=== PATIENT | female | born 1995 | race Caucasian/White ===

== ENCOUNTER 2019-04-03 15:15 | Emergency (ER) | payer MEDICAID, OTHER ==
[~2019-04-03] VITALS: Ht 170.2 cm; Wt 59.0 kg
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
--- NOTE | 2019-04-03 15:30 | NUR ---
TECH AT BEDSIDE FOR CLEANING AND FLUSHING OF L THUMB LAC
[2019-04-03] MEDS ORDERED: LIDOCAINE 1%-EPI 1:100,000 20 ML VIAL ONE (15:43)
[2019-04-03] MEDS ORDERED: TDAP [DIPH/PERTUSSIS/TET] 0.5 ML VIAL IM ONE ×2 (15:52→16:00)
--- NOTE | 2019-04-03 15:58 | NUR ---
[place] BUSTAMANTE AT BEDSIDE FOR SUTURING
[2019-04-03] MEDS ORDERED: LIDOCAINE HCL/PF 1% 30 ML VIAL TP ONE (16:00)
--- NOTE | 2019-04-03 16:42 | NUR ---
TECH AT BEDSIDE FOR WOUND CARE.
[2019-04-03 16:48] VITALS: BP 116/64
--- NOTE | 2019-04-03 16:48 | NUR ---
Patient discharged to home in stable condition. Written and verbal after care instructions given. Patient verbalizes understanding of instruction.
== END 2019-04-03 16:49 | disposition home or self-care (01) ==
LOC: ER 15:21
DX: S61.012A Laceration without foreign body of left thumb without damage to nail, initial encounter (principal); Z88.2 Allergy status to sulfonamides; W26.8XXA Contact with other sharp object(s), not elsewhere classified, initial encounter; Y93.89 Activity, other specified; Y92.89 Other specified places as the place of occurrence of the external cause; Y99.8 Other external cause status
CPT/HCPCS: 12001; 90471; 90715; 99283; J3490 ×2

== ENCOUNTER 2019-10-25 23:48 | Emergency (ER) | payer OTHER ==
[~2019-10-25] VITALS: Ht 170.2 cm; Wt 59.0 kg
--- NOTE | 2019-10-26 00:07 | NUR ---
PT CAME TO ER BED 11 C/O FEELING SICK. PT STATES THAT SHE WENT TO URGENT CARE ON THE AND THE FOR FEVER. PT STATES SHE IS CURRENTLY ON ANTIBIOTICS AND STATES IT HASN'T HELPED. PT ALSO TOOK TYLENOL ABOUT 1x HOUR WAREHOUSE ADMINISTRATOR. AAOX4. NO SOB. BREATHING EVENLY AND UNLABORED ON ROOM AIR. CONNECTED TO MONITOR.
--- NOTE | 2019-10-26 00:20 | NUR ---
URINE COLECTED AND SENT TO LAB
[2019-10-26] MEDS ORDERED: KETOROLAC TROMETHAMINE 15 MG/ML VIAL ONE (00:23)
[2019-10-26] MEDS ORDERED: IV NS 0.9% 1,000 ML BAG IV ONE (00:30)
[2019-10-26] MEDS ORDERED: KETOROLAC TROMETHAMINE INJ 30 MG/ML VIAL IV ONE (00:30)
--- NOTE | 2019-10-26 00:36 | NUR ---
BLOOD, STREP CULTURE, AND RAPID FLU SAMPLE TAKEN TO LAB WITH DRUM SAW OPERATOR
[2019-10-26 00:38] LABS: BASOPHILS # (AUTO) 0.1 /CMM (0.0-0.2); BASOPHILS % (AUTO) 1.3 % (0.0-2.0); EOSINOPHILS % (AUTO) 0.5 % (0.0-6.0); HEMATOCRIT 38 % (33-45); LYMPHOCYTES # (AUTO) 1.1 /CMM (0.8-4.8); LYMPHOCYTES % (AUTO) 25.7 % (20.0-44.0); MEAN CORPUSCULAR HGB CONC 35 g/dl (31.0-36.0); MEAN CORPUSCULAR VOLUME 87 fL (82-100); MONOCYTES # (AUTO) 0.4 /CMM (0.1-1.30); MONOCYTES % (AUTO) 10.3 % (2.0-12.0); NEUTROPHILS # (AUTO) 2.7 /CMM (1.8-8.9); NEUTROPHILS % (AUTO) 62.2 % (43.0-81.0); PLATELET COUNT (AUTO) 163 /CMM (150-450); WHITE BLOOD COUNT (AUTO) 4.3 K/uL (4.3-11.0)
[2019-10-26 00:39] LABS: APPEARANCE,URINE Clear (CLEAR); BILIRUBIN,URINE Negative (NEGATIVE); BLOOD, URINE Negative Ery/uL (NEGATIVE); COLOR,URINE Yellow (YELLOW); KETONES,URINE Trace (NEGATIVE); LEUKOCYTE ESTERASE ,URINE Small (NEGATIVE); NITRITE, URINE Negative (NEGATIVE); PROTEIN,URINE Negative (NEGATIVE); UGLUCOSE Negative (NEGATIVE); UROBILINOGEN,URINE 0.2 EU/dL (0.2)
[2019-10-26 00:54] LABS: CREATININE 1.1 mg/dL (0.6-1.3); POTASSIUM 3.3 mmol/L (3.5-5.1)
[2019-10-26 01:14] LABS: BACTERIA,URINE Few /HPF (None Seen); RBC,URINE 0-2 /HPF (0-2); SQUAMOUS EPITHELIAL CELL,UR Moderate /HPF (None Seen)
[2019-10-26 01:44] VITALS: BP 123/77
--- NOTE | 2019-10-26 01:44 | NUR ---
IV removed. Catheter intact and site benign. Pressure and 4x4 applied to site. No bleeding noted. Patient discharged to home in stable condition. Written and verbal after care instructions given. Patient verbalizes understanding of instruction.
== END 2019-10-26 01:45 | disposition home or self-care (01) ==
LOC: ER 23:50
DX: J32.9 Chronic sinusitis, unspecified (principal); Z88.2 Allergy status to sulfonamides
CPT/HCPCS: 36415; 80048; 81001; 84703; 85025; 87070; 87086; 87804 ×2; 87880; 96374; 99283; J1885; J7030; 81000-TC; 86403-TC

== ENCOUNTER 2020-11-27 08:10 | Emergency (ER) | payer OTHER ==
[~2020-11-27] VITALS: Ht 170.2 cm; Wt 59.0 kg
[2020-11-27 08:18] VITALS: BP 104/60
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
[2020-11-27] MEDS ORDERED: KETOROLAC TROMETHAMINE 15 MG/ML VIAL ONE (08:49)
--- NOTE | 2020-11-27 08:59 | NUR ---
IV access initiated on the RAC g18, blood drawned and sent to lab
[2020-11-27] MEDS ORDERED: KETOROLAC TROMETHAMINE INJ 30 MG/ML VIAL IV ONE (09:00)
[2020-11-27 09:18] LABS: BASOPHILS % (AUTO) 0.4 % (0.0-2.0); EOSINOPHILS % (AUTO) 1.2 % (0.0-6.0); HEMATOCRIT 40 % (33-45); HEMOGLOBIN 13.2 g/dL (11.5-14.8); LYMPHOCYTES % (AUTO) 28.5 % (20.0-44.0); MEAN CORPUSCULAR HGB CONC 33 g/dl (31.0-36.0); MEAN CORPUSCULAR VOLUME 90 fL (82-100); MONOCYTES # (AUTO) 0.6 /CMM (0.1-1.30); MONOCYTES % (AUTO) 8.4 % (2.0-12.0); NEUTROPHILS # (AUTO) 4.3 /CMM (1.8-8.9); NEUTROPHILS % (AUTO) 61.5 % (43.0-81.0); PLATELET COUNT (AUTO) 217 /CMM (150-450); RED BLOOD CELL COUNT(AUTO) 4.46 MIL/uL (4.0-5.2)
[2020-11-27 09:28] LABS: CALCIUM, SERUM 9.6 mg/dL (8.5-10.1); CREATININE 0.9 mg/dL (0.6-1.3)
[2020-11-27] MEDS ORDERED: IV NS 0.9% 250 ML IV ONE (09:38)
[2020-11-27] MEDS ORDERED: IOHEXOL-300 100 ML VIAL IV ONE (09:38)
[2020-11-27] MEDS ORDERED: CT SWABBABLE VALVE TRANS SET 1 EA INFUS.SET MC ONE (09:38)
--- NOTE | 2020-11-27 09:50 | NUR ---
wheeled patient to ct
--- NOTE | 2020-11-27 10:03 | NUR ---
patient came back from ct
[2020-11-27] MEDS ORDERED: IV NS 0.9% 1,000 ML IV ONE (11:00)
[2020-11-27] MEDS ORDERED: IBUP800T54 PO (11:10)
[2020-11-27] MEDS ORDERED: PENI250T2 PO (11:10)
[2020-11-27] MEDS ORDERED: CYCL5TAB PO (11:11)
--- NOTE | 2020-11-27 11:19 | NUR ---
Patient discharged to home in stable condition. Written and verbal after care instructions given. Patient verbalizes understanding of instruction.IV removed. Catheter intact and site benign. Pressure and 4x4 applied to site. No bleeding noted.
== END 2020-11-27 11:19 | disposition home or self-care (01) ==
LOC: ER 08:11
DX: R07.0 Pain in throat (principal); K08.89 Other specified disorders of teeth and supporting structures; Z88.2 Allergy status to sulfonamides; Z79.899 Other long term (current) drug therapy
CPT/HCPCS: 36415; 70487; 80048; 84702; 85025; 96361; 96374; 99285; J1885; J7050; Q9967

== ENCOUNTER 2022-09-19 23:43 | Emergency (ER) | payer OTHER ==
[~2022-09-19] VITALS: Ht 170.2 cm; Wt 54.4 kg
[~2022-09-19 23:43] MED LIST: CYCL5TAB PO; IBUP800T54 PO; PENI250T2 PO
--- NOTE | 2022-09-20 01:30 | NUR ---
BIBSELF C/O LAC TO LEFT LEG FROM [facility], TDAP UP TO DATE. PATIENT IS AAOX4. ABLE TO MAKE NEEDS KNOWN. AMBULATORY. WITH APPROX 6.5CM LACERATED WOUND. PLACED COMFORTABLY IN BED. VITALS CHECKED.
--- NOTE | 2022-09-20 01:56 | NUR ---
SEEN BY DR CLARK AT BEDSIDE. PATIENT FOR SUTURING OF LACERATED WOUND.
--- NOTE | 2022-09-20 02:30 | NUR ---
SUTURING OF WOUND DONE BY DR CLARK UNDER LOCAL ANESTHESIA
[2022-09-20 04:10] VITALS: BP 128/65
--- NOTE | 2022-09-20 04:10 | NUR ---
Patient discharged to home in stable condition. Written and verbal after care instructions given. Patient verbalizes understanding of instruction.
== END 2022-09-20 04:11 | disposition home or self-care (01) ==
LOC: ER 23:46
DX: S81.012A Laceration without foreign body, left knee, initial encounter (principal); Z88.0 Allergy status to penicillin; Z88.2 Allergy status to sulfonamides; Z79.899 Other long term (current) drug therapy; W25.XXXA Contact with sharp glass, initial encounter; Y93.89 Activity, other specified; Y92.89 Other specified places as the place of occurrence of the external cause; Y99.8 Other external cause status